=== PATIENT | female | born 1985 | race Caucasian/White ===

== ENCOUNTER 2017-06-06 14:35 | Emergency (ER) | payer OTHER ==
--- NOTE | 2017-06-06 15:39 | XRAY Preliminary Report ---
Exam: XR FOOT 3 VIEW RT IMPRESSION: 1. No acute osseous abnormalities. [facility] SITE ID: [id number]
--- NOTE | 2017-06-06 15:41 | XRAY Report ---
EXAM: RIGHT FOOT RADIOGRAPHY EXAM DATE: 06/06/2017 03:19 PM. CLINICAL HISTORY: Right fifth digit pain, crush injury. COMPARISON: None. TECHNIQUE: 3 views. FINDINGS: Bones: Normal. No fractures or bone lesions. Joints: Normal. No subluxations. Soft Tissues: Soft tissue swelling largely along the right fifth digit. No radiopaque foreign bodies. IMPRESSION: 1. No acute osseous abnormalities. [facility] Referring Provider Line: [phone] SITE ID: [id number]
--- NOTE | 2017-06-06 16:47 | ED Physician Documentation ---
History of Present Illness - Stated complaint Stated Complaint: R FOOT PX - Chief complaint Chief Complaint: Ext Problem - History obtained from History obtained from: Patient (Pt states that she hit her right little toe on the refrigerator yesterday.) - History of Present Illness Timing: Yesterday Review of Systems Constitutional: denies: Fever, Fatigue Cardiac: denies: Chest pain / pressure Respiratory: denies: Dyspnea GI: denies: Abdominal Pain, Nausea, Vomiting : denies: Dysuria Skin: denies: Rash, Lesions Musculoskeletal: reports: Other (right little toe pain) Neurologic: denies: Focal weakness, Numbness PD PAST MEDICAL HISTORY - Past Medical History Past Medical History: No Musculoskeletal: Chronic back pain - Past Surgical History 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 - Present Medications Home Medications: Ambulatory Orders Medication Instructions Recorded Confirmed HYDROcod/ACETAM 5/325 [[place] 5/325] 1 tab PO DAILY 06/06/17 06/06/17 Ibuprofen 800 mg PO Q8HR PRN 06/06/17 06/06/17 - Allergies Allergies/Adverse Reactions: Allergies Allergy/AdvReac Type Severity Reaction Status Date / Time Androgenic Anabolic Steroid Allergy Edema Verified 06/06/17 14:49 cortisone Allergy Edema Verified 06/06/17 14:49 morphine AdvReac Anaphylaxis Verified 06/06/17 14:49 steroids Allergy Edema Uncoded 04/13/16 21:24 - Social History Does the pt smoke?: No Smoking Status: Never smoker Does the pt drink ETOH?: No Does the pt have substance abuse?: No - Immunizations Immunizations are current?: Yes Immunizations: TDAP >10years/unknown PD ED PE NORMAL - Vitals Vital signs reviewed: Yes - General General: Alert and oriented X 3 - Cardiac Cardiac: Other (2+ DP pulses on the right foot with brisk cap refill ) - Respiratory Respiratory: No respiratory distress - Derm Derm: Normal color, Warm and dry - Extremities Extremities: No deformity, Other (TTP right little toe) - Neuro Neuro: Alert and oriented X 3, Other (sensation intact to right foot) Results - Vitals Vitals: Vital Signs - 24 hr 06/06/17 06/06/17 14:45 15:41 Temperature 36.2 C L 36.0 C L Heart Rate 80 93 Respiratory 16 12 Rate Blood Pressure 101/64 102/69 O2 Saturation 99 100 Oxygen O2 Source Room air - Rads (name of study) foot x-ray Radiology: Final report received PD MEDICAL DECISION MAKING - ED course Complexity details: d/w patient ED course: no fractures or dislocation. provided a hard sole shoe for comfort. Departure - Departure Disposition: 01 Home, Self Care Clinical Impression: Toe contusion Condition: Good Instructions: ED Contusion Lower Ext, ED RICE Follow-Up: TYRONE REDDY [Primary Care Provider] - Comments: Return to the ER for any new or worsening symptoms.
[2017-06-06 17:08] VITALS: BP 97/68
== END 2017-06-06 17:05 | disposition home or self-care (01) ==
LOC: ED 14:35
DX: S90.121A Contusion of right lesser toe(s) without damage to nail, initial encounter (principal); W22.09XA Striking against other stationary object, initial encounter; Y93.89 Activity, other specified
CPT/HCPCS: 99283

== ENCOUNTER 2017-07-23 01:02 | Emergency (ER) | payer OTHER ==
--- NOTE | 2017-07-23 01:46 | ED Physician Documentation ---
PD HPI URI - Stated complaint Stated Complaint: COUGH,VOMITING - Chief complaint Chief Complaint: Heent - History obtained from History obtained from: Patient - History of Present Illness Timing - onset: Yesterday Timing details: Gradual onset, Waxing and waning Pain level now: 9 Associated symptoms: Nasal congestion, Rhinorrhea, Sinus pain, Dry cough. 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 she describes post-tussive emesis. her son is currently checked in ED as patient for URI symptoms, and has had similar symptoms, as well. Review of Systems Constitutional: denies: Fever, Chills, Sweats Ears: denies: Ear pain Nose: reports: Rhinorrhea / runny nose, Congestion, Sinus pressure / pain Cardiac: denies: Chest pain / pressure Respiratory: reports: Cough. 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 - Present Medications Home Medications: Ambulatory Orders Medication Instructions Recorded Confirmed HYDROcod/ACETAM 5/325 [[place] 5/325] 1 tab PO DAILY 06/06/17 06/06/17 Ibuprofen 800 mg PO Q8HR PRN 06/06/17 06/06/17 Amox/Clav 875/125 [Augmentin] 1 each PO Q12H #19 tablet 07/23/17 Hydrocodone/Chlorphen P-Stirex 5 - 10 ml PO BID PRN #120 07/23/17 [Hydrocodone-Chlorphen ER Susp] [email or web address] - Allergies Allergies/Adverse Reactions: Allergies Allergy/AdvReac Type Severity Reaction Status Date / Time Androgenic Anabolic Steroid Allergy Edema Verified 07/23/17 01:17 cortisone Allergy Edema Verified 07/23/17 01:17 morphine AdvReac Anaphylaxis Verified 07/23/17 01:17 steroids Allergy Edema Uncoded 07/23/17 01:17 - Social History Does the pt smoke?: No Smoking Status: Never smoker Does the pt drink ETOH?: No Does the pt have substance abuse?: No - Immunizations Immunizations are current?: Yes Immunizations: TDAP >10years/unknown PD ED PE NORMAL - Vitals Vital signs reviewed: Yes - General General: Alert and oriented X 3, No acute distress, Well developed/nourished - HEENT HEENT: Ears normal, Moist mucous membranes, Pharynx benign - Neck Neck: Supple, no meningeal sign - Cardiac Cardiac: RRR, No murmur - Respiratory Respiratory: No respiratory distress, Clear bilaterally Results - Vitals Vitals: Vital Signs - 24 hr 07/23/17 07/23/17 01:13 02:32 Temperature 36.5 C 36.5 C Heart Rate 88 70 Respiratory 16 16 Rate Blood Pressure 112/52 L 121/65 O2 Saturation 100 100 Oxygen O2 Source Room air PD MEDICAL DECISION MAKING - ED course Complexity details: considered differential, d/w patient Departure - Departure Disposition: 01 Home, Self Care Clinical Impression: Sinusitis Qualifiers: Sinusitis location: frontal Chronicity: acute Recurrence: not specified as recurrent Qualified Code(s): J01.10 - Acute frontal sinusitis, unspecified Acute bronchitis Qualifiers: Bronchitis organism: unspecified organism Qualified Code(s): J20.9 - Acute bronchitis, unspecified Condition: Good Instructions: ED Sinusitis Abx Tx Follow-Up: TYRONE REDDY [Primary Care Provider] - (3-5 days) Prescriptions: Amox/Clav 875/125 [Augmentin] 1 each PO Q12H #19 tablet Hydrocodone/Chlorphen P-Stirex [Hydrocodone-Chlorphen ER Susp] 5 - 10 ml PO BID PRN #120 [email or web address] PRN Reason: Cough Discharge Date/Time: 07/23/17 02:32
[2017-07-23] MEDS ORDERED: AMOX/CLAV 875 MG/125 MG TABLET PO STA (02:22)
[2017-07-23 02:34] VITALS: BP 121/65
== END 2017-07-23 02:32 | disposition home or self-care (01) ==
LOC: ED 01:02
DX: J01.10 Acute frontal sinusitis, unspecified (principal); J20.9 Acute bronchitis, unspecified
CPT/HCPCS: 99283; A9270

== ENCOUNTER 2018-12-01 17:23 | Emergency (ER) | payer OTHER ==
[2018-12-01 17:34] VITALS: BP 113/67
[2018-12-01] MEDS ORDERED: ACETAMINOPHEN 325 MG TABLET PO STA (17:46)
[2018-12-01] MEDS ORDERED: NAPROXEN 250 MG TABLET PO STA (17:46)
--- NOTE | 2018-12-01 18:21 | ED Physician Documentation ---
PD HPI LOWER EXT INJURY - Stated complaint Stated Complaint: RT FOOT PAIN - Chief complaint Chief Complaint: Ext Problem - History obtained from History obtained from: Patient - History of Present Illness PD HPI LOW EXT INJURY LOCATION: Right, Foot Type of injury: Other (she is not aware of abrupt injury but after doing walking on sidewalk and some brief running (not out jogging). Noted pain lateral right foot, with small area of swelling/raised and is tender. No rash nor sores. No punctures.). No: Fall, Twist Where injury occurred: Street Timing - onset: Today Timing - duration: Hours Timing - details: Abrupt onset, Still present Improved by: Rest Worsened by: Moving, Palpating Associated symptoms: Swelling. No: Weakness, Numbness, Discolored Contributing factors: No: Prior ortho surgery Similar symptoms before: Has not had sx before (no history of gout. 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 - Present Medications Home Medications: Ambulatory Orders Medication Instructions Recorded Confirmed Estrogen,Con/M-Progest Acet 1 each PO 12/01/18 [Premphase 0.625-5 mg Tablet] - Allergies Allergies/Adverse Reactions: Allergies Allergy/AdvReac Type Severity Reaction Status Date / Time Androgenic Anabolic Steroid Allergy Edema Verified 07/23/17 01:17 cortisone Allergy Edema Verified 07/23/17 01:17 morphine AdvReac Anaphylaxis Verified 07/23/17 01:17 steroids Allergy Edema Uncoded 07/23/17 01:17 - Social History Does the pt smoke?: No Smoking Status: Never smoker Does the pt drink ETOH?: No Does the pt have substance abuse?: No - Immunizations Immunizations are current?: No Immunizations: TDAP >10years/unknown PD ED PE NORMAL - Vitals Vital signs reviewed: Yes - General General: Alert and oriented X 3, No acute distress, Well developed/nourished - Derm Derm: Normal color, Warm and dry - Extremities Extremities: Other (right lateral foot with 2 small focal areas of swelling and tenderness without skin breakdown nor sores. The areas of swelling are just few millimeters size, and are soft (though tender) and without redness nor skin sores. ) Results - Vitals Vitals: Vital Signs - 24 hr 12/01/18 17:32 Temperature 36.4 C L Heart Rate 94 Respiratory 16 Rate Blood Pressure 113/67 O2 Saturation 98 Oxygen O2 Source Room air - Rads (name of study) right foot Radiology: Prelim report reviewed, EMP read contemporaneously (no fractures nor acute bony lesions), See rad report PD MEDICAL DECISION MAKING - ED course Complexity details: considered differential (the areas of swelling that are tender almost feel like small veins and presume some superficial phlebitis, versus strain/contusion.), d/w patient Departure - Departure Disposition: 01 Home, Self Care Clinical Impression: Phlebitis of dorsal venous arch of foot Foot sprain Qualifiers: Encounter type: initial encounter Laterality: right Qualified Code(s): S93.601A - Unspecified sprain of right foot, initial encounter Condition: Stable Record reviewed to determine appropriate education?: Yes Instructions: ED Sprain Foot Follow-Up: TYRONE REDDY [Primary Care Provider] - Comments: Your x-ray appears normal without any signs of bony abnormality to account for the pain. Presume it some ligaments irritated from walking (sprain). This couple of areas that are tender there feel like superficial veins that may have gotten irritated and inflamed as well (phlebitis). These can get treated with anti-inflammatories such as naproxen or ibuprofen. Add Tylenol if needed. Cool towels or ice to the area tonight in the morning to help with some of the inflammation. There is no redness or swelling at the moment to suggest gout or infection. Recheck if you do develop other symptoms in the area or if this is not improved over the next several days. Discharge Date/Time: 12/01/18 18:30
--- NOTE | 2018-12-01 19:10 | XRAY Report ---
Reason: right mid foot pain after walking today Procedure Date: 12/01/2018 Accession Number: [id number] / [id number] Procedure: XR - Foot 3 View RT CPT Code: FULL RESULT: EXAM: RIGHT FOOT RADIOGRAPHY EXAM DATE: 12/01/2018 06:14 PM. CLINICAL HISTORY: Right mid foot pain after walking today. COMPARISON: FOOT 3 VIEW RT 06/06/2017 3:13 PM. TECHNIQUE: 3 views. FINDINGS: Bones: Normal. No fractures or bone lesions. Joints: Normal. No subluxations. Soft Tissues: Normal. No soft tissue swelling. IMPRESSION: Normal foot radiography. [facility]
== END 2018-12-01 18:30 | disposition home or self-care (01) ==
LOC: ED 17:23
DX: S93.601A Unspecified sprain of right foot, initial encounter (principal); X50.9XXA Other and unspecified overexertion or strenuous movements or postures, initial encounter; Y93.02 Activity, running; Y93.01 Activity, walking, marching and hiking; Y92.480 Sidewalk as the place of occurrence of the external cause; I80.01 Phlebitis and thrombophlebitis of superficial vessels of right lower extremity
CPT/HCPCS: 73630; 99282; 99283; A9270

== ENCOUNTER 2019-01-13 12:53 | Outpatient (CLI) | payer OTHER ==
[2019-01-13] MEDS ORDERED: IOTHALAMATE MEGLUMINE 50 ML VIAL ONE (13:03)
[2019-01-13] MEDS ORDERED: BUFFERED LIDOCAINE 10 ML SYRINGE ONE (13:03)
[2019-01-13] MEDS ORDERED: GADOPENTETATE DIMEGLUMINE 5 ML VIAL IVP ONE (13:04)
--- NOTE | 2019-01-15 09:15 | MRI Report ---
Reason: PAIN IN RIGHT KNEE Procedure Date: 01/13/2019 Accession Number: [id number] / [id number] Procedure: MRI - Knee RT W/O CPT Code: FULL RESULT: EXAM: RIGHT KNEE MRI WITHOUT CONTRAST EXAM DATE: 01/13/2019 02:12 PM. CLINICAL HISTORY: Right knee pain. COMPARISON: None. TECHNIQUE: Multiplanar, multisequence T1-weighted and fluid-sensitive sequences of the knee without contrast. Other: None. FINDINGS: Bones: There are no visible fractures. Articular Cartilage: There is mild cartilage erosion in the patellofemoral compartment. There is mild lateral patellar subluxation. Patella tendon/patellar length ratio is at the upper limits of normal. Medial Meniscus: The medial meniscus is intact. Lateral Meniscus: The lateral meniscus is intact. Cruciate Ligaments: The anterior and posterior cruciate ligaments are intact. Collateral Ligaments: The medial collateral and lateral collateral ligamentous structures are intact. Tendons: The quadriceps, patellar, semimembranosus, and popliteus tendons are unremarkable. Musculature: No edema or fatty atrophy. Other: No effusion. No popliteal cyst. No loose bodies. The medial and lateral retinacula are intact. The subcutaneous tissues and fat pads are unremarkable. IMPRESSION: 1. Mild degenerative change of the patellofemoral joint, with findings suggestive of lateral patellar subluxation. [facility]
== END 2019-01-13 12:54 | disposition home or self-care (01) ==
LOC: DI 12:53
PROVIDERS: ATTEND Family Medicine
DX: M17.11 Unilateral primary osteoarthritis, right knee (principal)

== ENCOUNTER 2023-04-17 15:26 | Outpatient (CLI) | payer OTHER ==
--- NOTE | 2023-04-18 08:41 | MRI Report ---
PROCEDURE: KNEE WO - RT INDICATIONS: PAIN IN RIGHT KNEE TECHNIQUE: Noncontrast sagittal PD fast spin echo and T2 fast spin echo with fat saturation, sagittal 3-D gradie nt sequence with fat saturation; coronal T1 spin echo and PD fast spin echo with fat saturation, and axial PD fast spin echo with fat saturation through the knee. COMPARISON: MRI dated 01/13/2019 FINDINGS: Image quality: Excellent. Menisci: The medial and lateral menisci demonstrate normal morphology and internal signal. The meni scal root ligaments appear intact. Cruciate ligaments: The anterior and posterior cruciate ligaments appear intact. Medial structures: The medial collateral ligament appears intact. Visualized portions of the pes ans erinus tendons appear normal. No abnormal bursal fluid. Lateral structures: The lateral collateral ligament, long and short heads of the biceps femoris tend on appear intact. The popliteus tendon appears normal. Iliotibial band appears normal. Anterior structures: The quadriceps and patellar tendons appear intact. Patellar alignment is normal . Lateral ventral trochlear prominence is present. Mild edema within the superolateral aspect of the infrapatellar fat pad, as before. No edema in the infrapatellar fat pad. Bones and cartilage: No bone marrow contusions or fractures. There is mild ill-defined T2 signal el evation within the posterior nonweightbearing aspect of the lateral femoral condyle as well as the po sterior nonweightbearing aspect of the medial tibial plateau. There is articular cartilage fibrillati on overlying the patellar apex and lateral patellar facet. There is a focal region of high-grade yamilka cular cartilage loss overlying the midportion of the lateral patellar facet. Moderate degree cartilag e loss diffusely overlies the weightbearing aspects of the medial femoral condyle and medial tibial p lateau. Joint space: There is physiologic knee joint fluid. No Rincon's cyst. Normal appearing synovial pli are incidentally noted. IMPRESSION: 1. No internal derangement. 2. Findings consistent with lateral patellofemoral friction syndrome in the appropriate clinical sett ing, as before. 3. Contusion versus degenerative marrow edema within the lateral femoral condyle and medial tibial pl ateau. 4. Medial and patellofemoral compartment articular cartilage loss. Reviewed by: Mattie Chi MD on 04/18/2023 8:40 AM PDT Approved by: Mattie Chi MD on 04/18/2023 8:40 AM PDT Station ID: [id number]
== END 2023-04-17 15:27 | disposition home or self-care (01) ==
LOC: DI 15:26
PROVIDERS: ATTEND Orthopaedic Surgery
DX: M22.41 Chondromalacia patellae, right knee (principal)

== ENCOUNTER 2023-04-23 17:35 | Outpatient (CLI) | payer OTHER | END 2023-04-23 17:36 | disposition home or self-care (01) | LOC: DI 17:35 | PROVIDERS: ATTEND Orthopaedic Surgery | DX: Z53.9 Procedure and treatment not carried out, unspecified reason (principal) ==

== ENCOUNTER 2023-06-13 09:32 | Emergency (ER) | payer OTHER ==
[2023-06-13 09:52] VITALS: O2SAT 98
--- NOTE | 2023-06-13 10:17 | XRAY Report ---
PROCEDURE: Ankle 3 View LT INDICATIONS: Trauma TECHNIQUE: 3 views of the ankle were acquired. COMPARISON: None. FINDINGS: Bones: No fractures or dislocations. Ankle mortise is normally aligned. No suspicious bony lesions . Soft tissues: No tibiotalar joint effusion. Achilles tendon appears normal. IMPRESSION: No visualized acute fracture or dislocation. However, occult injury cannot be excluded. Recommend cody rt interval imaging follow-up in 7-10 days as clinically indicated for additional evaluation. Reviewed by: Connie Clement MD on 06/13/2023 10:15 AM [facility] Approved by: Connie Clement MD on 06/13/2023 10:15 AM [facility] Station ID: [id number]
--- NOTE | 2023-06-13 11:18 | ED Physician Documentation ---
PD HPI LOWER EXT INJURY - Stated complaint Stated Complaint: LT FOOT PX - Chief complaint Chief Complaint: Trauma Ext - History obtained from History obtained from: Patient - History of Present Illness PD HPI LOW EXT INJURY LOCATION: Left, Ankle, Foot Type of injury: Twist (she stepped on her done's chew bone and twisted ankle with inversion. Pain and difficulty walkking since at anterolateral ankle.) Where injury occurred: Home Timing - onset: How many days ago (2) Timing - duration: Days (2) Timing - details: Abrupt onset, Still present Worsened by: Moving, Palpating (anterolaterally) Associated symptoms: Swelling. 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: Other - Present Medications Home Medications: Ambulatory Orders Medication Instructions Recorded Confirmed Estrogen,Con/M-Progest Acet 1 each PO 12/01/18 [Premphase 0.625-5 mg Tablet] Ibuprofen [Motrin] 600 mg PO TID PRN #25 tab 06/13/23 - Allergies Allergies/Adverse Reactions: Allergies Allergy/AdvReac Type Severity Reaction Status Date / Time Androgenic Anabolic Steroid Allergy Edema Verified 06/13/23 09:45 cortisone Allergy Edema Verified 06/13/23 09:45 fentanyl Allergy Anaphylaxis Verified 06/13/23 09:45 morphine AdvReac Anaphylaxis Verified 06/13/23 09:45 steroids Allergy Edema Uncoded 06/13/23 09:45 - Social History Does the pt smoke?: No Smoking Status: Never smoker Does the pt drink ETOH?: No Does the pt have substance abuse?: No - Immunizations Immunizations are current?: Yes Immunizations: TDAP >10years/unknown - POLST Patient has POLST: No PD ED PE NORMAL - Vitals Vital signs reviewed: Yes - General General: Alert and oriented X 3, No acute distress, Well developed/nourished - Derm Derm: Normal color, Warm and dry - Extremities Extremities: Other (left ankle with tenderness anterolateral distal to malleolus. Some swelling. No bruising. Medially not tender. Pain with inversion. Mild laxiity with inversion stress. ) - Neuro Neuro: Alert and oriented X 3, No motor deficit, No sensory deficit Results - Vitals Vitals: Vital Signs - 24 hr 06/13/23 06/13/23 09:39 12:30 Temperature 36.7 C Heart Rate 91 90 Respiratory 16 16 Rate Blood Pressure 116/80 111/75 O2 Saturation 98 98 Oxygen O2 Source Room air - Rads (name of study) left ankle Relevant Findings:: Prelim report reviewed, EMP independent interpretation of test (no fractures nor dislocaitons at ankle nor base of foot. ) PD Medical Decision Making - ED course Complexity details: reviewed results (xray without fractures. ), considered differential (inversion ankle injury with pain enough for inhibted weight bearing. Inversion stress is painful with some mild laxity c/w ligament injuries. ), d/w patient Departure - Departure Disposition: Home, Self Care Clinical Impression: Ankle sprain Condition: Stable Instructions: ED Sprain Ankle Follow-Up: ISRA CHILDRESS ARNP [Primary Care Provider] - Prescriptions: Ibuprofen [Motrin] 600 mg PO TID PRN #25 tab PRN Reason: Pain Comments: Use the ankle brace for the next 2 to 3 weeks until fully improved. You do not have to have it on when resting necessarily. Initially crutches for partial to no weightbearing and increase weightbearing as tolerated. It is okay to be on your ankle while supported with the brace and still heal sprain adequately. Progress other activity as tolerated. Ice elevate and rest your ankle often the next day or 2 for swelling. Ibuprofen and/or Tylenol as needed for pains. I would anticipate an improvement over several days to week and resolution over 1 to 3 weeks and instead DYS fashion. Follow-up with your primary care or Ortho if not steadily improving in that progression. I sent prescription for some ibuprofen to the [facility] pharmacy. Forms: PCP List Discharge Date/Time: 06/13/23 12:32
[2023-06-13] MEDS ORDERED: IBUPROFEN 800 MG TABLET PO STA (11:39)
[2023-06-13 12:39] VITALS: BP 111/75
== END 2023-06-13 12:32 | disposition home or self-care (01) ==
LOC: ED 09:32
DX: S93.402A Sprain of unspecified ligament of left ankle, initial encounter (principal); X50.1XXA Overexertion from prolonged static or awkward postures, initial encounter; Y92.009 Unspecified place in unspecified non-institutional (private) residence as the place of occurrence of the external cause
CPT/HCPCS: 73610; 99283; 99284; A9270

== ENCOUNTER 2023-11-09 10:28 | Outpatient (CLI) | payer OTHER ==
--- NOTE | 2023-11-09 15:17 | Ultrasound Report ---
PROCEDURE: Abdomen Limited INDICATIONS: ABD MUSCLE STRAIN TECHNIQUE: Real-time focused scanning was performed of the abdomen, with image documentation. COMPARISONS: None. FINDINGS: There is no sonographic evidence for hernia in the area palpated by the patient. IMPRESSION: No sonographic evidence for hernia in the area of interest. Reviewed by: Bruna Beard MD on 11/09/2023 3:16 PM PDT Approved by: Bruna Beard MD on 11/09/2023 3:16 PM PDT Station ID: [id number]
== END 2023-11-09 10:29 | disposition home or self-care (01) ==
LOC: DI 10:28
PROVIDERS: ATTEND Nurse Practitioner Family
DX: S39.011A Strain of muscle, fascia and tendon of abdomen, initial encounter (principal)

== ENCOUNTER 2023-11-21 10:47 | Outpatient (CLI) | payer OTHER ==
[2023-11-21 11:36] LABS: THYROID STIMULATING HORMONE 1.62 uIU/mL (0.34-5.60)
[2023-11-21 12:51] LABS: ESTIMATED AVERAGE GLUCOSE 111 mg/dL (70-100); HEMOGLOBIN A1c% 5.5 % (4.27-6.07)
== END 2023-11-21 10:48 | disposition home or self-care (01) ==
LOC: LAB 10:47
PROVIDERS: ATTEND Obstetrics & Gynecology
DX: E28.319 Asymptomatic premature menopause (principal)
CPT/HCPCS: 36415; 82670; 83001; 83036; 83498; 84443

== ENCOUNTER 2023-12-15 12:40 | Outpatient (CLI) | payer OTHER ==
--- NOTE | 2023-12-16 10:24 | Mammography Report ---
BILATERAL DIGITAL SCREENING MAMMOGRAM 3D/2D: 12/15/2023 CLINICAL: Baseline exam. Routine screening. No prior exams were available for comparison. Both breasts are extremely dense, which lowers the sensitivity of mammography (category d />75% gland ular tissue). There are grouped fine calcifications in the left breast central to the nipple posterior depth. No other significant masses, calcifications, or other findings are seen in either breast. IMPRESSION: INCOMPLETE: NEEDS ADDITIONAL IMAGING EVALUATION The grouped fine calcifications in the left breast are indeterminate. Additional views with possible ultrasound are recommended. Based on the Tyrer Cuzick model (a risk assessment model) the patient's lifetime risk is 19.6% and he r 10 year risk is 2.6%. According to the ACR, ACS, and NCCN guidelines, an annual breast MRI exam patria ng with mammogram is recommended if the patient's lifetime risk is 20% or greater. This exam was interpreted at Station ID: [id number]. NOTE: For mammograms, a report in lay terms will be sent to the patient. Approximately 15% of breast malignancies will not be visualized mammographically. In the management of a palpable breast mass, a negative mammogram must not discourage biopsy of a clinically suspicious lesion. Electronically Signed By: Mahi choudhary/antonia:12/15/2023 16:39:57 ACR BI-RADS Category 0: Incomplete 3340F PARENCHYMAL PATTERN: (VD) - The breast(s) demonstrate(s) extremely dense parenchyma, limiting the sen sitivity of mammography. BI-RADS CATEGORY: (0) - 0 Mammo and [place] [id number] Immediate follow-up LATERALITY: (B)
== END 2023-12-15 12:41 | disposition home or self-care (01) ==
LOC: DI 12:40
PROVIDERS: ATTEND Obstetrics & Gynecology
DX: Z12.31 Encounter for screening mammogram for malignant neoplasm of breast (principal); R92.1 Mammographic calcification found on diagnostic imaging of breast

== ENCOUNTER 2023-12-15 12:41 | Outpatient (CLI) | payer OTHER ==
--- NOTE | 2023-12-16 13:21 | DEXA Report ---
PROCEDURE: Dexa Spine and/or Hip INDICATIONS: PREMATURE MENOPAUSE TECHNIQUE: Dual energy x-ray absorptiometry (DXA) was performed on a [employer] System. Regions measur ed are the AP Spine, femoral neck, and if needed forearm. COMPARISON: None available. FINDINGS: Lumbar Spine: Bone Mineral Density: 0.796 g/cm/cm,T score: -3.2. Left Femoral Neck: Bone Mineral Density: 0.626 g/cm/cm, T score: -3.0. Left Hip: Bone Mineral Density: 0.672 g/cm/cm,T score: -2.7. (T score greater or equal to -1.0: NORMAL) (T score from -1.1 to -2.4: OSTEOPENIA) (T score less than or equal to -2.5 to: OSTEOPOROSIS) Impression: By WHO criteria, this patient has osteoporosis. of the lumbar spine. of the hip. Patients with diagnosis of osteoporosis or osteopenia should have regular bone mineral density assess ment. For those eligible for Medicare, routine testing is allowed once every 2 years. Testing frequ ency can be increased for patients who have rapidly progressing disease or for those who are receivin g medical therapy to restore bone mass. Reviewed by: Elliott Curiel MD on 12/16/2023 1:20 PM PDT Approved by: Elliott Curiel MD on 12/16/2023 1:20 PM PDT Station ID: [id number]
== END 2023-12-15 12:42 | disposition home or self-care (01) ==
LOC: DI 12:41
PROVIDERS: ATTEND Obstetrics & Gynecology
DX: M81.0 Age-related osteoporosis without current pathological fracture (principal)

== ENCOUNTER 2024-01-19 14:07 | Outpatient (CLI) | payer OTHER ==
--- NOTE | 2024-01-20 08:56 | Mammography Report ---
UNILATERAL LEFT DIGITAL DIAGNOSTIC MAMMOGRAM 3D/2D WITH MAGNIFICATION: 01/19/2024 CLINICAL: Patient returns for magnification views of microcalcifications in the left breast. Comparison is made to exam dated: 12/15/2023 mammogram - [facility]. The left breast is extremely dense, which lowers the sensitivity of mammography (category d />75% gla ndular tissue). There are grouped, fine, amorphous and round calcifications in the left breast central to the nipple posterior depth. No other significant masses or calcifications are seen in the breast. IMPRESSION: PROBABLY BENIGN The grouped fine calcifications in the left breast are probably benign. A follow-up left mammogram in 6 months is recommended to demonstrate stability. Findings and recommendations were conveyed to the patient at time of exam. Based on the Tyrer Cuzick model (a risk assessment model) the patient's lifetime risk is 19.6% and he r 10 year risk is 2.6%. According to the ACR, ACS, and NCCN guidelines, an annual breast MRI exam patria ng with mammogram is recommended if the patient's lifetime risk is 20% or greater. This exam was interpreted at Station ID: [id number]. NOTE: For mammograms, a report in lay terms will be sent to the patient. Approximately 15% of breast malignancies will not be visualized mammographically. In the management of a palpable breast mass, a negative mammogram must not discourage biopsy of a clinically suspicious lesion. Electronically Signed By: Mahi choudhary/:01/19/2024 15:06:43 ACR BI-RADS Category 3: Probably benign [id number] PARENCHYMAL PATTERN: (VD) - The breast(s) demonstrate(s) extremely dense parenchyma, limiting the sen sitivity of mammography. BI-RADS CATEGORY: (3) - 3 Mammogram [id number] 6 month follow-up LATERALITY: (L)
== END 2024-01-19 14:08 | disposition home or self-care (01) ==
LOC: DI 14:07
PROVIDERS: ATTEND Obstetrics & Gynecology
DX: R92.0 Mammographic microcalcification found on diagnostic imaging of breast (principal)